=== PATIENT | male | born 1980 | race Caucasian/White ===

== ENCOUNTER 2017-12-09 11:17 | Emergency (ER) | payer SELFPAY ==
[~2017-12-09] VITALS: Ht 185.4 cm; Wt 90.7 kg
[2017-12-09] MEDS ORDERED: ZYPREXA10 MG ORAL ×2 (11:31→11:39)
[2017-12-09 11:38] VITALS: BP 113/68
[2017-12-09 11:44] VITALS: BP 113/68
--- NOTE | 2017-12-09 12:08 | Emergency Room Report ---
History of Present Illness General Chief Complaint: Medication Refill Source: Patient Present Illness HPI 37-year-old male presents to ED for evaluation. Patient states he is here for medication refill. Takes Zyprexa. Ran out 5 days ago. Denies any suicidal or homicidal ideation. Denies hearing voices. Denies drug use. No other aggravating or relieving factors. Denies any other associated symptoms Allergies: Coded Allergies: No Known Allergies (Unverified , 12/09/17) Patient History Past Medical History: psych hx Past Surgical History: none Pertinent Family History: none Social History: Denies: smoking, alcohol use, drug use Immunizations: UTD Reviewed Nursing Documentation: PMH: Agreed; PSxH: Agreed Nursing Documentation-PMH Past Medical History: No History, Except For Review of Systems All Other Systems: negative except mentioned in HPI Physical Exam Vital Signs Date Time Temp Pulse Resp B/P (MAP) Pulse Ox O2 Delivery O2 Flow Rate FiO2 12/09/17 11:29 98.2 78 16 113/68 95 Room Air 98.2 Sp02 EP Interpretation: reviewed, normal General Appearance: no apparent distress, alert, GCS 15, non-toxic Head: normocephalic, atraumatic Eyes: bilateral eye normal inspection, bilateral eye PERRL ENT: hearing grossly normal, normal pharynx, no angioedema, normal voice Neck: full range of motion, supple/symm/no masses Respiratory: chest non-tender, lungs clear, normal breath sounds, speaking full sentences Cardiovascular #1: regular rate, rhythm, no edema Cardiovascular #2: 2+ carotid (R), 2+ carotid (L), 2+ radial (R), 2+ radial (L) , 2+ dorsalis pedis (R), 2+ dorsalis pedis (L) Gastrointestinal: normal bowel sounds, non tender, soft, non-distended, no guarding, no rebound Rectal: deferred Genitourinary: normal inspection, no CVA tenderness Musculoskeletal: back normal, gait/station normal, normal range of motion, non- tender Neurologic: alert, oriented x3, responsive, motor strength/tone normal, sensory intact, speech normal Psychiatric: judgement/insight normal, memory normal, mood/affect normal, no suicidal/homicidal ideation Reflexes: 3+ bicep (R), 3+ bicep (L), 3+ tricep (R), 3+ tricep (L), 3+ knee (R) , 3+ knee (L) Skin: normal color, no rash, warm/dry, well hydrated Lymphatic: no adenopathy Medical Decision Making Diagnostic Impression: Primary Impression: Encounter for medication refill ER Course 37-year-old male presents to ED refill of his medication. takes zyprexa hospital course: After initial history and physical, he produces pill bottle for Zyprexa. I agreed to provide patient with refill of his Zyprexa. Showing no signs of suicidal or homicidal ideation. No hearing voices. Not danger to himself. Patient is safe for discharge Diagnosis-encounter for medication refill Stable and discharged to home with prescription for zyprexa. Followup with PMD. Return to ED if symptoms recur or worsen Last Vital Signs Date Time Temp Pulse Resp B/P (MAP) Pulse Ox O2 Delivery O2 Flow Rate FiO2 12/09/17 11:44 98.2 78 16 113/68 95 Room Air 98.2 Status: improved Disposition: HOME, SELF-CARE Condition: Stable Scripts Olanzapine* (ZYPREXA*) 10 Mg Tablet 10 MG ORAL DAILY, #30 TAB 0 Refills Prov: Eleuterio Hendricks MD 12/09/17 Referrals: NOT CHOSEN IPA/,REFERRING (PCP) Patient Instructions: Medicine Refill at the Emergency Department Eleuterio Hendricks MD Dec 09, 2017 12:08
== END 2017-12-09 11:44 | disposition home or self-care (01) ==
LOC: EMR 11:40
DX: Z76.0 Encounter for issue of repeat prescription (principal)
CPT/HCPCS: 99283